=== PATIENT | male | born 1950 | race Caucasian/White ===

== ENCOUNTER 2017-09-08 09:01 | Inpatient (IN) | payer MEDICARE ==
[~2017-09-08] VITALS: Ht 180.3 cm; Wt 117.9 kg
[2017-09-08] MEDS ORDERED: ONDANSETRON HCL 4MG/2ML VIAL IV STA (09:30)
[2017-09-08] MEDS ORDERED: SODIUM CHLORIDE 0.9% 1,000 ML IV ONE ×2 (09:30→16:00)
[2017-09-08] MEDS ORDERED: FAMOTIDINE 20MG/2ML VIAL IV STA (09:30)
[2017-09-08] MEDS ORDERED: MORPHINE SULFATE 4 MG/ML CPJ (NOT FOR IM USE) IV STA (09:30)
[2017-09-08 09:52] LABS: HEMATOCRIT. 43.2 % (42.0-52.0); HEMOGLOBIN. 14.9 g/dL (14.0-18.0); MEAN CORPUSCULAR HEMOGLOBIN 27.9 pg (28.0-32.0); MEAN CORPUSCULAR VOLUME 81.3 fL (80.0-94.0); MEAN PLATELET VOLUME 7.7 fl (7.4-10.4); PLATELET 219 x1000/uL (130-400); RED BLOOD CELL COUNT 5.32 mill/uL (4.7-6.1); RED CELL DISTRIBUTION WIDTH 13.9 % (11.6-14.6)
[2017-09-08 09:59] LABS: CHLORIDE 101 mEq/L (98-107)
[2017-09-08 10:03] LABS: INR 1.1; PARTIAL THROMBOPLASTIN TIME 26.5 sec (23.4-31.0)
[2017-09-08 10:11] LABS: PLATELET ESTIMATE NORMAL
[2017-09-08] MEDS ORDERED: METRONIDAZOLE 500 MG PREMIX 100 ML IV ONE (11:30)
[2017-09-08] MEDS ORDERED: CEFTRIAXONE 1 G PREMIX 50 ML IV ONE (11:30)
[2017-09-08] MEDS ORDERED: LORAZEPAM 0.5MG TABLET PO PRN (13:15)
[2017-09-08] MEDS ORDERED: ONDANSETRON HCL 4MG/2ML VIAL IV PRN ×3 (13:15→16:00)
[2017-09-08] MEDS ORDERED: DIPHENHYDRAMINE 50MG/ML VIAL IV PRN (13:15)
[2017-09-08] MEDS ORDERED: DEXT 5%/0.45% NACL 1000ML 1,000 ML IV SCH (13:15)
[2017-09-08] MEDS ORDERED: NA PHOS,M-B/NA PHOS,DI-BA ENEMA 118ML PR PRN (13:15)
[2017-09-08] MEDS ORDERED: CLONIDINE 0.1MG TABLET PO PRN (13:15)
[2017-09-08] MEDS ORDERED: IPRATROPIUM/ALBUTEROL 0.5-3(2.5)MG/3ML NEB INH PRN (13:15)
[2017-09-08] MEDS ORDERED: MORPHINE SULFATE 4 MG/ML CPJ (NOT FOR IM USE) IV PRN ×3 (13:15→15:45)
[2017-09-08] MEDS ORDERED: DOCUSATE SODIUM 100MG CAPSULE PO PRN (13:15)
[2017-09-08] MEDS ORDERED: MAGNESIUM/ALUMINUM HYDROXIDE/SIMETHICONE 30ML UDC PO PRN (13:15)
[2017-09-08] MEDS ORDERED: GUAIFENESIN 200MG/10ML SUGAR FREE UDC PO PRN (13:15)
[2017-09-08] MEDS ORDERED: TRAMADOL 50MG TABLET PO PRN (13:15)
[2017-09-08] MEDS ORDERED: BUPIVACAINE HCL 0.5% (5MG/ML) 50ML ONE (13:30)
[2017-09-08] MEDS ORDERED: SKIN ADHESIVE 0.7 GM EA TOP ONE (13:30)
[2017-09-08] MEDS ORDERED: GLYCOPYRROLATE 0.2 MG/ML 2ML VIAL ONE ×2 (14:16→15:52)
[2017-09-08] MEDS ORDERED: PROPOFOL 200MG/20ML VIAL IV ONE (14:16)
[2017-09-08] MEDS ORDERED: FENTANYL CITRATE/PF 50MCG/ML 2ML VIAL ONE (14:16)
[2017-09-08] MEDS ORDERED: MIDAZOLAM HCL 2 MG/2 ML VIAL ONE (14:16)
[2017-09-08] MEDS ORDERED: ROCURONIUM BROMIDE 10MG/ML VIAL 5ML IV ONE (14:16)
[2017-09-08] MEDS ORDERED: NEOSTIGMINE METHYLSULFATE 1MG/ML 10 ML VIAL ONE (14:16)
[2017-09-08] MEDS ORDERED: PHENYLEPHRINE HCL 10 MG/ML 1ML (IV VIAL) IV ONE (14:17)
[2017-09-08] MEDS ORDERED: EPHEDRINE SULFATE 50MG/ML VIAL ONE (14:17)
[2017-09-08] MEDS ORDERED: SUCCINYLCHOLINE CHLORIDE 200MG/10ML VIAL IV ONE (14:17)
[2017-09-08] MEDS ORDERED: LIDOCAINE HCL/PF 1% 10 MG/ML 5ML VIAL ONE (14:17)
[2017-09-08] MEDS ORDERED: SODIUM CHLORIDE 0.9% 10ML VIAL ONE (14:17)
[2017-09-08] MEDS ORDERED: CEFAZOLIN SODIUM 1000MG/VIAL ONE (14:17)
[2017-09-08] MEDS ORDERED: LABETALOL HCL 5MG/ML VIAL 20ML IV ONE (15:44)
[2017-09-08] MEDS ORDERED: ACETAMINOPHEN 325MG TABLET PO PRN (15:45)
[2017-09-08] MEDS ORDERED: ACETAMINOPHEN 650MG SUPP PR PRN (15:45)
[2017-09-08] MEDS ORDERED: HYDROCODONE/ACETAMINOPHEN 5/325MG TABLET PO PRN ×2 (15:45)
[2017-09-08] MEDS ORDERED: MEPERIDINE HCL/PF 25MG/ML CPJ IV PRN (16:00)
[2017-09-08] MEDS ORDERED: HYDROMORPHONE HCL/PF 2MG/ML CPJ IV PRN (16:00)
[2017-09-08] MEDS ORDERED: KCL 20MEQ/100ML PREMIX 100 ML IV NR (17:00)
[2017-09-08] MEDS: METRONIDAZOLE 500 MG PREMIX 100 ML IV SCH ×2 (17:00→23:07)
[2017-09-08] MEDS ORDERED: AMLO5TAB88 PO (17:35)
[2017-09-08] MEDS ORDERED: LOSA100T14 PO (17:35)
[2017-09-08 18:00] VITALS: BP 134/71
[2017-09-08] MEDS ORDERED: PIPERACILLIN/TAZOBACTAM 3.375GM/50ML PREMIX IV ONE (18:00)
[2017-09-08] MEDS: PIPERACILLIN/TAZ 3.375G PREMIX 50 ML IV SCH ×2 (18:00→23:07)
[2017-09-08] MEDS ORDERED: DEXT 5%/0.45% NACL KCL 20MEQ/L 1,000 ML IV SCH (18:00)
[2017-09-08] MEDS: PANTOPRAZOLE SODIUM 40 MG/VIAL IV SCH (18:42)
[2017-09-08] MEDS: ENOXAPARIN 30MG/0.3ML SYR SUBCUT SCH ×2 (18:43→21:48)
[2017-09-08 20:00] VITALS: BP 136/69
[2017-09-08 20:05] LABS: CREATINE KINASE 155 IU/L (39-308)
[2017-09-08 20:06] LABS: CREATINE KINASE MB FRACTION 2.5 ng/mL (0.5-3.6)
[2017-09-08] MEDS ORDERED: ZOLPIDEM TARTRATE 5MG TABLET PO PRN (21:00)
[2017-09-08] MEDS: METOPROLOL TARTRATE 25MG TABLET PO SCH (21:00)
[2017-09-08] MEDS: SODIUM CHLORIDE 0.9% INJ 3ML FLUSH IVF SCH (21:48)
[2017-09-09] VITALS: BP 125/62
[2017-09-09] MEDS: ACETAMINOPHEN 325MG TABLET PO PRN ×2 (01:28→06:47)
[2017-09-09] MEDS: SODIUM CHLORIDE 0.9% INJ 3ML FLUSH IVF SCH (05:07)
[2017-09-09] MEDS: METRONIDAZOLE 500 MG PREMIX 100 ML IV SCH ×2 (05:14→12:49)
[2017-09-09] MEDS: PIPERACILLIN/TAZ 3.375G PREMIX 50 ML IV SCH ×2 (05:14→11:53)
[2017-09-09 07:28] LABS: CREATINE KINASE 181 IU/L (39-308)
[2017-09-09 07:32] LABS: CREATINE KINASE MB FRACTION 1.4 ng/mL (0.5-3.6)
[2017-09-09 08:00] VITALS: BP 136/67
[2017-09-09] MEDS: PANTOPRAZOLE SODIUM 40 MG/VIAL IV SCH (08:24)
[2017-09-09] MEDS: METOPROLOL TARTRATE 25MG TABLET PO SCH (08:24)
[2017-09-09] MEDS: ENOXAPARIN 30MG/0.3ML SYR SUBCUT SCH (08:25)
[2017-09-09 10:49] VITALS: BP 136/67
[2017-09-09] MEDS ORDERED: CEFTRIAXONE 1 G PREMIX 50 ML IV SCH (11:00)
[2017-09-09 12:00] VITALS: BP 129/69
== END 2017-09-09 16:26 | disposition home or self-care (01) | DRG 418 ==
LOC: ER 11:38 → 7WST 12:02 → ENRESERV 12:47 → SUPCPDRO 13:14
PROVIDERS: ADMIT Internal Medicine; ATTEND Internal Medicine
PROC: 0FT44ZZ Resection of Gallbladder, Percutaneous Endoscopic Approach (ICD-10-PCS; principal; 2017-09-08 14:00)
DX: K80.00 Calculus of gallbladder with acute cholecystitis without obstruction (principal); E44.1 Mild protein-calorie malnutrition; I96 Gangrene, not elsewhere classified; E87.6 Hypokalemia; I10 Essential (primary) hypertension; K76.0 Fatty (change of) liver, not elsewhere classified; E66.9 Obesity, unspecified; Z68.36 Body mass index [BMI] 36.0-36.9, adult
CPT/HCPCS: 36415; 71045; 73706; 76705; 80053; 82550; 82553; 83036; 83690; 84484; 85025; 85610; 85730; 88304; 93005; 93306; 93970; 96365; 96366; 96375; 96376; 97162; 99285; A4216; C9113; J0330; J0690; J0696; J1650; J2250; J2270; J2370; J2405; J2543; J2704; J2710; J3010; J3480; J3490; J7030; J7050